=== PATIENT | male | born 1950 | race American Indian/Alaskan Native ===

== ENCOUNTER 2019-04-02 13:15 | Inpatient (IN) | payer MEDICARE ==
[2019-04-02] MEDS ORDERED: predniSONE 20 MG TAB PO STA (13:36)
[2019-04-02] MEDS ORDERED: ALBUTEROL 2.5 MG/3 ML NEBU IH ONE ×3 (13:36→17:24)
--- NOTE | 2019-04-02 13:39 | Event Note ---
ED Screening Note ED Screening Note: The patient was seen in triage for PMH of HTN, Rheumatic fever, chest pain and sob with wheezing. Strong smoking history quit 2 days ago. symptoms worse with exertion. Labs/imaging ordered to evaluate for a cause of this complaint. Vital signs reviewed, patient awake and alert in NAD. This initial assessment/diagnostic orders/clinical plan/treatment(s) is/are subject to change based on patients health status, clinical progression and re- assessment by fellow clinical providers in the ED. Further treatment and workup at subsequent clinical providers discretion. Patient/guardian urged not to elope from the ED as their condition may be serious if not clinically assessed and managed. Initial orders include:
[2019-04-02 14:24] LABS: Basophils % (Auto) 0.6 % (0.0-1.8); Eosinophils # (Auto) 0.1 K/mm3 (0.0-0.4); Eosinophils % (Auto) 1.7 % (0.0-4.3); Hematocrit 41.3 % (35.5-45.6); Lymphocytes # (Auto) 1.4 K/mm3 (1.2-5.4); Lymphocytes % (Auto) 31.2 % (13.4-35.0); Mean Corpuscular HGB Conc 34 % (32-34); Mean Corpuscular Volume 95 fl (84-94); Monocytes # (Auto) 0.5 K/mm3 (0.0-0.8); Monocytes % (Auto) 11.2 % (0.0-7.3); Platelet Count 182 K/mm3 (140-440); Red Blood Count 4.36 M/mm3 (3.65-5.03); Red Cell Distribution Width 14.8 % (13.2-15.2)
--- NOTE | 2019-04-02 14:26 | XRay Report ---
CHEST 2 VIEWS INDICATION: Chest Pain. COMPARISON: None FINDINGS: Support devices: None. Heart: Within normal limits. The aorta is mildly ectatic with calcifications. Lungs/pleura: No acute air space or interstitial disease. No pneumothorax. Additional findings: None. IMPRESSION: No acute findings. Signer Name: Abilio Ramirez Jr, MD Signed: 04/02/2019 2:21 PM Workstation Name: [id number]
[2019-04-02 14:49] LABS: Alanine Aminotransferase 17 units/L (7-56); Albumin 4.1 g/dL (3.9-5); BUN/Creatinine Ratio 13; Blood Urea Nitrogen 12 mg/dL (9-20); Calcium 9.6 mg/dL (8.4-10.2); Hemolysis Index 13
[2019-04-02] MEDS ORDERED: IPRATROPIUM 0.02% NEBU 2.5 ML IH ONE (14:59)
[2019-04-02] MEDS ORDERED: methylPREDNISolone Sod Succinate 125 MG/2 ML INJ IV ONE (14:59)
[2019-04-02] MEDS ORDERED: MAGNESIUM SULFATE 2 GM/50 ML BAG IV ONE (14:59)
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
--- NOTE | 2019-04-02 19:40 | History and Physical Report ---
History of Present Illness Date of examination: 04/02/19 Date of admission: 04/02/19 17:26 Chief complaint: " Shortness of breath x3 weeks" History of present illness: Patient is a 68-year-old male with a past medical history of hypertension, asthma, COPD, and prostate problems who presents to ER with complaints of difficulty in breathing x3 weeks. Patient states he gets mild relief from his inhaler and nebulizer treatment, and he is not currently on home O2. He is currently inpatient at [facility] and was sent to the ER after complaints of his shortness of breath increasingly getting worse and accompanied with an unproductive cough. He denies headache, nausea, chest pain, or dizziness. Past History Past Medical History: COPD, hypertension Past Surgical History: appendectomy Social history: smoking (x 50 years), alcohol abuse Family history: hypertension Medications and Allergies Allergies Allergy/AdvReac Type Severity Reaction Status Date / Time No Known Allergies Allergy Unverified 04/02/19 13:22 Review of Systems All systems: negative Cardiovascular: edema, shortness of breath, dyspnea on exertion, high blood pressure Respiratory: shortness of breath Exam - Physical Exam Narrative exam: - Physical Exam Narrative exam: General appearance: Present: mild distress - EENT Eyes: Present: PERRL ENT: hearing intact, clear oral mucosa - Neck Neck: Present: supple, normal ROM - Respiratory Respiratory effort: normal Respiratory: bilateral: wheeze, - Cardiovascular Heart Sounds: Present: S1 & S2. Absent: rub, click - Extremities Extremities: pulses symmetrical, No edema Peripheral Pulses: within normal limits - Abdominal General gastrointestinal: Present: ,obese, normal bowel sounds genitourinary: Present: normal - Integumentary Integumentary: Present: clear, warm, dry - Musculoskeletal Musculoskeletal: gait normal, strength equal bilaterally - Psychiatric Psychiatric: appropriate mood/affect, intact judgment & insight - Neurologic Neurologic: CNII-XII intact, moves all extremities - Constitutional Vitals: Temp Pulse Resp BP Pulse Ox 98.2 F 84 16 102/68 89 04/02/19 13:37 04/02/19 18:07 04/02/19 18:07 04/02/19 17:00 04/02/19 17:00 TARUN score - Tarun Score Age > 65: (1) Yes Aspirin use within the Past 7 Days: (0) No 3 or more CAD Risk Factors: (0) No 2 or more Angina events in past 24 hrs: (0) No Known CAD with more than 50% Stenosis: (0) No Elevated Cardiac Markers: (0) No ST Deviation Greater than 0.5mm: (0) No TARUN Score: 1 Results - Labs CBC & Chem 7: 04/02/19 14:09 04/02/19 14:09 Labs: Laboratory Last Values WBC 4.5 K/mm3 (4.5-11.0) 04/02/19 14:09 RBC 4.36 M/mm3 (3.65-5.03) 04/02/19 14:09 Hgb 14.0 gm/dl (11.8-15.2) 04/02/19 14:09 Hct 41.3 % (35.5-45.6) 04/02/19 14:09 MCV 95 fl (84-94) H 04/02/19 14:09 MCH 32 pg (28-32) 04/02/19 14:09 MCHC 34 % (32-34) 04/02/19 14:09 RDW 14.8 % (13.2-15.2) 04/02/19 14:09 Plt Count 182 K/mm3 (140-440) 04/02/19 14:09 Lymph % (Auto) 31.2 % (13.4-35.0) 04/02/19 14:09 [place] % (Auto) 11.2 % (0.0-7.3) H 04/02/19 14:09 Eos % (Auto) 1.7 % (0.0-4.3) 04/02/19 14:09 Baso % (Auto) 0.6 % (0.0-1.8) 04/02/19 14:09 Lymph # 1.4 K/mm3 (1.2-5.4) 04/02/19 14:09 [place] # 0.5 K/mm3 (0.0-0.8) 04/02/19 14:09 Eos # 0.1 K/mm3 (0.0-0.4) 04/02/19 14:09 Baso # 0.0 K/mm3 (0.0-0.1) 04/02/19 14:09 Seg Neutrophils % 55.3 % (40.0-70.0) 04/02/19 14:09 Seg Neutrophils # 2.5 K/mm3 (1.8-7.7) 04/02/19 14:09 Sodium 138 mmol/L (137-145) 04/02/19 14:09 Potassium 4.2 mmol/L (3.6-5.0) 04/02/19 14:09 Chloride 99.3 mmol/L (98-107) 04/02/19 14:09 Carbon Dioxide 25 mmol/L (22-30) 04/02/19 14:09 Anion Gap 18 mmol/L 04/02/19 14:09 BUN 12 mg/dL (9-20) 04/02/19 14:09 Creatinine 0.9 mg/dL (0.8-1.5) 04/02/19 14:09 Estimated GFR > 60 ml/min 04/02/19 14:09 BUN/Creatinine Ratio 13 % 04/02/19 14:09 Glucose 89 mg/dL (75-100) 04/02/19 14:09 Calcium 9.6 mg/dL (8.4-10.2) 04/02/19 14:09 Total Bilirubin 0.20 mg/dL (0.1-1.2) 04/02/19 14:09 AST 16 units/L (5-40) 04/02/19 14:09 ALT 17 units/L (7-56) 04/02/19 14:09 Alkaline Phosphatase 59 units/L (35-129) 04/02/19 14:09 Troponin T < 0.010 ng/mL (0.00-0.029) 04/02/19 14:09 NT-Pro-B Natriuret Pep 105.2 pg/mL (0-900) 04/02/19 14:09 Total Protein 7.9 g/dL (6.3-8.2) 04/02/19 14:09 Albumin 4.1 g/dL (3.9-5) 04/02/19 14:09 Albumin/Globulin Ratio 1.1 % 04/02/19 14:09 - Imaging and Cardiology EKG: report reviewed (sinus rhythm) Chest x-ray: report reviewed (No acute findings.) Assessment and Plan Assessment and plan: Acute COPD exacerbation - provide scheduled nebulizer breathing treatment and as needed, empiric steroid - Supplemental oxygen to keep oxygen saturation above 92% - Consider to consult pulmonary if no improvement in next 24 hours Acute respiratory failure with hypoxia -Likely secondary to COPD exacerbation -Cont IV steroids and duonebs Hypertension -Home meds once reconciled -Monitor BP q shift Nicotine Dependency -Cessation counseling -nicotine patch prn DVT prophylaxis -SCDs bilaterally -Patient ambulatory VTE prophylaxis?: Chemical Plan of care discussed with patient/family: Yes
[2019-04-02] MEDS ORDERED: ONDANSETRON 4 MG/2 ML INJ IV PRN (19:42)
[2019-04-02] MEDS ORDERED: ALBUTEROL 2.5 MG/3 ML NEBU IH PRN (19:42)
[2019-04-02] MEDS: ALBUTEROL 2.5 MG/3 ML NEBU IH SCH (21:05)
[2019-04-02] MEDS: ACETAMINOPHEN 325 MG TAB PO PRN (21:45)
[2019-04-03] MEDS: methylPREDNISolone Sod Succinate 125 MG/2 ML INJ IV SCH ×4 (00:15→21:58)
[2019-04-03] MEDS: ALBUTEROL 2.5 MG/3 ML NEBU IH SCH ×5 (00:21→20:50)
[2019-04-03 04:04] LABS: Hematocrit 39.8 % (35.5-45.6); Hemoglobin 13.3 gm/dl (11.8-15.2); Mean Corpuscular HGB Conc 33 % (32-34); Mean Corpuscular Volume 95 fl (84-94); Platelet Count 166 K/mm3 (140-440); Red Blood Count 4.18 M/mm3 (3.65-5.03); Red Cell Distribution Width 14.7 % (13.2-15.2)
[2019-04-03 06:43] LABS: BUN/Creatinine Ratio 16; Blood Urea Nitrogen 13 mg/dL (9-20); Calcium 9.2 mg/dL (8.4-10.2); Hemolysis Index 7
[2019-04-03] MEDS: ACETAMINOPHEN 325 MG TAB PO PRN ×2 (09:42→20:01)
[2019-04-03 12:35] LABS: Basophils % (Manual) 0 % (0.0-1.8); Eosinophils % (Manual) 0 % (0.0-4.3); Monocytes % (Manual) 0 % (0.0-7.3); Total Cells Counted 100
[2019-04-03 12:36] LABS: Platelet Estimate Consistent w Auto; RBC Morphology Normal
--- NOTE | 2019-04-03 13:22 | Progress Note ---
Assessment and Plan Acute COPD exacerbation - provide scheduled nebulizer breathing treatment and as needed, empiric steroid - Supplemental oxygen to keep oxygen saturation above 92% - Consider to consult pulmonary if no improvement in next 24 hours Improving Acute respiratory failure with hypoxia -Likely secondary to COPD exacerbation -Cont IV steroids and duonebs Hypertension -Home meds once reconciled -Monitor BP q shift Nicotine Dependency -Cessation counseling -nicotine patch prn DVT prophylaxis -SCDs bilaterally -Patient ambulatory VTE prophylaxis?: Chemical Plan of care discussed with patient/family: Yes Subjective Date of service: 04/03/19 Principal diagnosis: Acute respiratory failure and COPD exacerbation Interval history: Patient is a 68-year-old male with a past medical history of hypertension, asthma, COPD, and prostate problems who presents to [facility] ER with complaints of difficulty in breathing x3 weeks. Patient states he gets mild relief from his inhaler and nebulizer treatment, and he is not currently on home O2. He is currently inpatient at [facility] and was sent to the ER after complaints of his shortness of breath increasingly getting worse and accompanied with an unproductive cough. He denies headache, nausea, chest pain, or dizziness. Continues to be short of breath and having wheezing and chest congestion. Cough productive of mucoid sputum Objective - Constitutional Vitals: Vital Signs - 12hr 04/03/19 04/03/19 04/03/19 02:15 02:47 07:50 Temperature 97.5 F L Pulse Rate 83 Pulse Rate [ 84 Anterior Bilateral Throughout] Pulse Rate [ 80 Right Brachial] Respiratory 20 20 Rate Respiratory 19 Rate [Anterior Bilateral Throughout] Blood Pressure 145/79 O2 Sat by Pulse 94 98 Oximetry 04/03/19 04/03/19 07:51 08:44 Temperature 97.5 F L Pulse Rate 86 Pulse Rate [ Anterior Bilateral Throughout] Pulse Rate [ Right Brachial] Respiratory 20 Rate Respiratory Rate [Anterior Bilateral Throughout] Blood Pressure 137/67 O2 Sat by Pulse 96 91 Oximetry General appearance: Present: mild distress, well-nourished - EENT Eyes: PERRL, EOM intact ENT: hearing intact, clear oral mucosa Ears: bilateral: normal - Neck Neck: supple, normal ROM - Respiratory Respiratory effort: normal Respiratory: bilateral: CTA, diminished, rhonchi, wheezing - Breasts Breasts: normal - Cardiovascular Heart rate: 78 Rhythm: regular Heart Sounds: Present: S1 & S2. Absent: gallop, rub Extremities: no ischemia, pulses intact, No edema, normal color, Full ROM - Gastrointestinal General gastrointestinal: Present: soft, non-tender, non-distended, normal bowel sounds - Genitourinary Male genitourinary: normal - Integumentary Integumentary: clear, warm, dry - Musculoskeletal Musculoskeletal: 1, strength equal bilaterally - Neurologic Neurologic: moves all extremities - Psychiatric Psychiatric: memory intact, appropriate mood/affect, intact judgment & insight - Labs CBC & Chem 7: 04/03/19 03:23 04/03/19 03:23 Labs: Abnormal lab results 04/02/19 04/03/19 04/03/19 Range/Units 14:09 03:23 03:23 MCV 95 H 95 H (84-94) fl [place] % (Auto) 11.2 H (0.0-7.3) % Seg Neuts % (Manual) 96.0 H (40.0-70.0) % Lymphocytes % (Manual) 4.0 L (13.4-35.0) % Lymphocytes # (Manual) 0.2 L (1.2-5.4) K/mm3 Sodium 135 L (137-145) mmol/L Chloride 97.1 L (98-107) mmol/L Glucose 261 H (75-100) mg/dL - Imaging and cardiology Chest x-ray: report reviewed
[2019-04-03] MEDS ORDERED: LIP THERAPY VASELINE TP PRN (19:00)
[2019-04-04] MEDS: ALBUTEROL 2.5 MG/3 ML NEBU IH SCH ×4 (01:00→20:18)
[2019-04-04] MEDS: methylPREDNISolone Sod Succinate 125 MG/2 ML INJ IV SCH ×3 (05:28→21:49)
--- NOTE | 2019-04-04 15:52 | Discharge Summary ---
Providers - Providers Date of Admission: 04/02/19 17:26 Date of discharge: 04/04/19 Attending physician: JAYME DIMAS 04/03/19 12:20 Physical Therapy Evaluation and Treat [CONS] Routine Comment: Reason For Exam: weakness Hospitalization Condition: Stable Hospital course: Patient is a 68-year-old male with a past medical history of hypertension, asthma, COPD, and prostate problems who presents to ER with complaints of difficulty in breathing x3 weeks. Patient states he gets mild relief from his inhaler and nebulizer treatment, and he is not currently on home O2. He is currently inpatient at [facility] and was sent to the ER after complaints of his shortness of breath increasingly getting worse and accompanied with an unproductive cough. He denies headache, nausea, chest pain, or dizziness. Acute COPD exacerbation - provide scheduled nebulizer breathing treatment and as needed, empiric steroid - Supplemental oxygen to keep oxygen saturation above 92% - Consider to consult pulmonary if no improvement in next 24 hours Improved Discharge on PO Levaquin and Prednisone Acute respiratory failure with hypoxia -Likely secondary to COPD exacerbation Discharge on PO Levaquin and Prednisone - Hypertension -Home meds once reconciled -Monitor BP q shift Nicotine Dependency -Cessation counseling -nicotine patch prn DVT prophylaxis -SCDs bilaterally -Patient ambulatory VTE prophylaxis?: Chemical Plan of care discussed with patient/family: Yes Disposition: DC-01 TO HOME OR SELFCARE Core Measure Documentation - Palliative Care Palliative Care/ Comfort Measures: Not Applicable - Core Measures Any of the following diagnoses?: none Exam - Constitutional Vitals: Temp Pulse Resp BP Pulse Ox 98.2 F 85 18 143/78 100 04/04/19 14:03 04/04/19 14:15 04/04/19 14:15 04/04/19 14:03 04/04/19 14:03 General appearance: Present: no acute distress, well-nourished - EENT Eyes: Present: PERRL ENT: hearing intact, clear oral mucosa - Neck Neck: Present: supple, normal ROM - Respiratory Respiratory effort: normal Respiratory: bilateral: CTA - Cardiovascular Heart rate: 78 Rhythm: regular Heart Sounds: Present: S1 & S2. Absent: rub, click - Extremities Extremities: no ischemia, pulses intact, pulses symmetrical, No edema Peripheral Pulses: within normal limits - Abdominal General gastrointestinal: Present: soft, non-tender, non-distended, normal bowel sounds Male genitourinary: Present: normal - Integumentary Integumentary: Present: clear, warm, dry - Musculoskeletal Musculoskeletal: gait normal, strength equal bilaterally - Psychiatric Psychiatric: appropriate mood/affect, intact judgment & insight - Neurologic Neurologic: CNII-XII intact, moves all extremities - Allied Health Allied health notes reviewed: nursing, case management Plan Activity: no restrictions Diet: low salt Follow up with: Kelly CLEMONS [Other] - 7 Days NIGEL DEY MD [Staff Physician] - 7 Days
--- NOTE | 2019-04-04 15:57 | Progress Note ---
Assessment and Plan Acute COPD exacerbation - provide scheduled nebulizer breathing treatment and as needed, empiric steroid - Supplemental oxygen to keep oxygen saturation above 92% - Consider to consult pulmonary if no improvement in next 24 hours Improving Desturating while walking 100 steps Acute respiratory failure with hypoxia -Likely secondary to COPD exacerbation -Cont IV steroids and duonebs Hypertension -Home meds once reconciled -Monitor BP q shift Nicotine Dependency -Cessation counseling -nicotine patch prn DVT prophylaxis -SCDs bilaterally -Patient ambulatory VTE prophylaxis?: Chemical Plan of care discussed with patient/family: Yes Subjective Date of service: 04/04/19 Principal diagnosis: Acute respiratory failure and COPD exacerbation Interval history: Patient is a 68-year-old male with a past medical history of hypertension, asthma, COPD, and prostate problems who presents to ER with complaints of difficulty in breathing x3 weeks. Patient states he gets mild relief from his inhaler and nebulizer treatment, and he is not currently on home O2. He is currently inpatient at [facility] and was sent to the ER after complaints of his shortness of breath increasingly getting worse and accompanied with an unproductive cough. He denies headache, nausea, chest pain, or dizziness. Continues to be short of breath and having wheezing and chest congestion. Cough productive of mucoid sputum. O2 sats dropping on walkig. Still wheezing Objective - Constitutional Vitals: Vital Signs - 12hr 04/04/19 04/04/19 04/04/19 07:29 08:55 09:29 Temperature 97.8 F Pulse Rate 74 Pulse Rate [ 91 H Anterior Bilateral Throughout] Pulse Rate [ Right Brachial] Respiratory 18 Rate Respiratory 20 Rate [Anterior Bilateral Throughout] Blood Pressure 115/64 O2 Sat by Pulse 96 97 Oximetry 04/04/19 04/04/19 04/04/19 10:00 14:03 14:15 Temperature 98.2 F Pulse Rate Pulse Rate [ 85 Anterior Bilateral Throughout] Pulse Rate [ 91 H Right Brachial] Respiratory 22 18 Rate Respiratory 18 Rate [Anterior Bilateral Throughout] Blood Pressure 143/78 O2 Sat by Pulse 97 100 Oximetry General appearance: Present: no acute distress, well-nourished - EENT Eyes: PERRL, EOM intact ENT: hearing intact, clear oral mucosa Ears: bilateral: normal - Neck Neck: supple, normal ROM - Respiratory Respiratory effort: normal Respiratory: bilateral: CTA - Breasts Breasts: normal - Cardiovascular Heart rate: 78 Rhythm: regular Heart Sounds: Present: S1 & S2. Absent: gallop, rub Extremities: no ischemia, pulses intact, No edema, normal color, Full ROM - Gastrointestinal General gastrointestinal: Present: soft, non-tender, non-distended, normal bowel sounds - Genitourinary Male genitourinary: normal - Integumentary Integumentary: clear, warm, dry - Musculoskeletal Musculoskeletal: 1, strength equal bilaterally - Neurologic Neurologic: moves all extremities - Psychiatric Psychiatric: memory intact, appropriate mood/affect, intact judgment & insight - Labs CBC & Chem 7: 04/03/19 03:23 04/03/19 03:23
[2019-04-04] MEDS: ACETAMINOPHEN 325 MG TAB PO PRN (20:22)
[2019-04-05] MEDS: ALBUTEROL 2.5 MG/3 ML NEBU IH SCH ×3 (01:43→15:54)
[2019-04-05 02:43] VITALS: BP 120/78
[2019-04-05] MEDS: methylPREDNISolone Sod Succinate 125 MG/2 ML INJ IV SCH ×2 (05:42→13:36)
--- NOTE | 2019-04-05 17:14 | Discharge Summary ---
Providers - Providers Date of Admission: 04/02/19 17:26 Date of discharge: 04/05/19 Attending physician: JAYME DIMAS 04/03/19 12:20 Physical Therapy Evaluation and Treat [CONS] Routine Comment: Reason For Exam: weakness Hospitalization Condition: Stable Hospital course: Patient is a 68-year-old male with a past medical history of hypertension, asthma, COPD, and prostate problems who presents to ER with complaints of difficulty in breathing x3 weeks. Patient states he gets mild relief from his inhaler and nebulizer treatment, and he is not currently on home O2. He is currently inpatient at [facility] and was sent to the ER after complaints of his shortness of breath increasingly getting worse and accompanied with an unproductive cough. He denies headache, nausea, chest pain, or dizziness. Acute COPD exacerbation - provide scheduled nebulizer breathing treatment and as needed, empiric steroid - Supplemental oxygen to keep oxygen saturation above 92% - Consider to consult pulmonary if no improvement in next 24 hours Improved Discharge on PO Levaquin and Prednisone Acute respiratory failure with hypoxia -Likely secondary to COPD exacerbation Discharge on PO Levaquin and Prednisone - Hypertension -Home meds once reconciled -Monitor BP q shift Nicotine Dependency -Cessation counseling -nicotine patch prn DVT prophylaxis -SCDs bilaterally -Patient ambulatory VTE prophylaxis?: Chemical Plan of care discussed with patient/family: Yes Disposition: DC-01 TO HOME OR SELFCARE Core Measure Documentation - Palliative Care Palliative Care/ Comfort Measures: Not Applicable - Core Measures Any of the following diagnoses?: none Exam - Constitutional Vitals: Temp Pulse Resp BP Pulse Ox 97.9 F 69 18 120/78 94 04/05/19 02:41 04/05/19 15:55 04/05/19 15:55 04/05/19 02:41 04/05/19 10:00 General appearance: Present: no acute distress, well-nourished - EENT Eyes: Present: PERRL ENT: hearing intact, clear oral mucosa - Neck Neck: Present: supple, normal ROM - Respiratory Respiratory effort: normal Respiratory: bilateral: CTA - Cardiovascular Heart rate: 78 Rhythm: regular Heart Sounds: Present: S1 & S2. Absent: rub, click - Extremities Extremities: no ischemia, pulses intact, pulses symmetrical, No edema Peripheral Pulses: within normal limits - Abdominal General gastrointestinal: Present: soft, non-tender, non-distended, normal bowel sounds Male genitourinary: Present: normal - Integumentary Integumentary: Present: clear, warm, dry - Musculoskeletal Musculoskeletal: gait normal, strength equal bilaterally - Psychiatric Psychiatric: appropriate mood/affect, intact judgment & insight - Neurologic Neurologic: CNII-XII intact, moves all extremities Plan Activity: no restrictions Diet: low cholesterol, low salt Follow up with: Kelly CLEMONS [Other] - 7 Days NIGEL DEY MD [Staff Physician] - 7 Days
== END 2019-04-05 17:55 | disposition home or self-care (01) | DRG 189 ==
LOC: ED 13:15 → OBSVTOIN 17:26 → 2B-ACE 17:26
PROVIDERS: ADMIT Internal Medicine; ATTEND Internal Medicine
DX: J96.01 Acute respiratory failure with hypoxia (principal); J44.1 Chronic obstructive pulmonary disease with (acute) exacerbation; I10 Essential (primary) hypertension; F17.200 Nicotine dependence, unspecified, uncomplicated; J44.9 Chronic obstructive pulmonary disease, unspecified; Z90.49 Acquired absence of other specified parts of digestive tract; Z82.49 Family history of ischemic heart disease and other diseases of the circulatory system; Z71.6 Tobacco abuse counseling
CPT/HCPCS: 36415; 71046; 80048; 80053; 83880; 84484; 85007; 85025; 87116; 93005; 93010; 94640; 94644; 99406; G0378; J1956; J2930; J3475